=== PATIENT | male | born 1970 | race Caucasian/White ===

== ENCOUNTER → 2018-03-05 | Outpatient (REF) | payer OTHER ==
[2018-03-05 15:06] LABS: INR 0.94; PARTIAL THROMBOPLASTIN TIME 29.8 SECONDS (25.4-37.6); PROTHROMBIN TIME 12.6 SECONDS (12.1-14.4)
[2018-03-05 15:45] LABS: COLLAGEN EPINEPHRINE 117 SECONDS (74-162)
== END ==
LOC: M LABDRAW1 14:38
PROVIDERS: ATTEND Physical Medicine & Rehabilitation
DX: Z79.01 Long term (current) use of anticoagulants (principal)

== ENCOUNTER 2022-12-04 08:08 | Day surgery (SDC) | payer BC, OTHER ==
[~2022-12-04] VITALS: Ht 172.7 cm; Wt 73.0 kg
[~2022-12-04 08:08] MED LIST: AMLO1TAB25 PO; LOSA100T46 PO; NS 1,000 ML IV ONE; PANT40TA29 PO; RA M500C PO; VITA-243 PO; VITA100093 PO
[2022-12-04] MEDS ORDERED: propofoL 200 MG/20 ML VIAL As Ordered ONE (10:10)
[2022-12-04] MEDS ORDERED: LIDOCAINE 2% 100MG/5ML SDV (FOR ANES.) As Ordered ONE (10:10)
[2022-12-04 10:42] VITALS: TEMP 97.4
[2022-12-04 11:13] VITALS: BP 121/76; O2SAT 100
== END 2022-12-04 11:23 | disposition home or self-care (01) ==
LOC: M OPP 08:08
PROVIDERS: ATTEND Internal Medicine Gastroenterology
DX: Z12.11 Encounter for screening for malignant neoplasm of colon (principal); K64.4 Residual hemorrhoidal skin tags; K64.8 Other hemorrhoids; K44.9 Diaphragmatic hernia without obstruction or gangrene; K29.70 Gastritis, unspecified, without bleeding; K21.00 Gastro-esophageal reflux disease with esophagitis, without bleeding; R12 Heartburn; Z79.1 Long term (current) use of non-steroidal anti-inflammatories (NSAID); Z79.899 Other long term (current) drug therapy